=== PATIENT | male | born 1995 | race Caucasian/White ===

== ENCOUNTER 2016-07-30 11:09 | Emergency (ER) | payer OTHER ==
[2016-07-30 11:30] VITALS: RESP 16; TEMP 96.9
[2016-07-30] MEDS ORDERED: Sodium Chloride 0.9% 1,000 ML PRIMARY IV ONE (11:58)
[2016-07-30] MEDS ORDERED: NORMAL SALINE 10 ML SYRINGE FLUSH IVP PRN (11:58)
[2016-07-30 12:04] LABS: BASOPHILS # (AUTO) 0.02 10*3/UL; BASOPHILS % (AUTO) 0.8 % (0-1); EOSINOPHILS # (AUTO) 0.06 10*3/UL; EOSINOPHILS % (AUTO) 2.3 % (0-8); HEMATOCRIT 42.7 % (42.0-52.0); HEMOGLOBIN 14.4 g/dL (14.0-18.0); LYMPHOCYTES # (AUTO) 1.04 10*3/uL; MEAN CORPUSCULAR HEMOGLOBIN 31.4 PG (27-31); MEAN CORPUSCULAR HGB CONC 33.7 g/dL (33-37); MEAN CORPUSCULAR VOLUME 93.2 FL (80-90); MEAN PLATELET VOLUME 12.1 FL (7.4-12.2); MONOCYTES # (AUTO) 0.31 10*3/UL (0.3-0.8); MONOCYTES % (AUTO) 11.9 % (5-15); NEUTROPHILS # (AUTO) 1.18 10*3/UL; NEUTROPHILS % (AUTO) 45.2 % (50-80); RED BLOOD COUNT 4.58 10^6/uL (4.70-6.10)
[2016-07-30 12:08] LABS: PLATELET MORPHOLOGY COMMENT NORMAL MORPHOLOGY (NORM); RBC MORPHOLOGY COMMENT NORMAL MORPHOLOGY (NORM); WBC MORPHOLOGY COMMENT NORMAL MORPHOLOGY (NORM)
[2016-07-30 12:16] LABS: BLOOD UREA NITROGEN 17 mg/dL (7-22); CALCIUM 9.2 mg/dL (8.7-10.7); EST GLOMERULAR FILTRATION > 60 (>60 ml/min/1.73m(2)); LIPASE 56 IU/L (23-300); SERUM ALBUMIN 4.3 g/dL (3.7-5.6)
[2016-07-30 12:56] LABS: URINE SAMPLE TYPE CLEAN CATCH URINE
[2016-07-30 12:57] LABS: CLARITY,URINE CLEAR (CLEAR); COLOR,URINE YELLOW
[2016-07-30 12:58] LABS: BILIRUBIN,URINE NEGATIVE (NEG); GLUCOSE, URINE (UA) NEGATIVE (NEG); NITRATE,URINE NEGATIVE (NEG); OCCULT BLOOD,URINE MODERATE (NEG); PROTEIN,URINE NEGATIVE (NEG); UROBILINOGEN,URINE 0.2 EU/dL (0.2)
[2016-07-30 12:59] LABS: WBC,URINE 0
--- NOTE | 2016-07-30 13:20 | DI ---
HISTORY: Abdominal pain. TECHNIQUE: Serial axial images of the abdomen and pelvis were obtained with coronal and sagittal ref ormats. FINDINGS: There are nonspecific mildly prominent right lower quadrant and central mesenteric lymph n odes identified measuring up to 1.2cm. The heart size is normal and the lung bases are clear. The liver and spleen are normal in size and contour and demonstrate no focal abnormalities. The gall bladder is unremarkable and no intra or extrahepatic biliary ductal dilatation is identified. The pancreas and adrenal glands are normal. The kidneys are in anatomic position. There is no evidence of renal calculi, hydronephrosis or solid renal masses. There is mild sigmoid diverticulosis. Remainder of the visualized bowel, mesentery and omentum are un remarkable with no evidence of obstruction or perforation. IMPRESSION: 1. There are nonspecific mildly prominent right lower quadrant and central mesenteric lymph nodes geovanny ntified measuring up to 1.2cm. These findings are stable from 2013 CT. Clinical correlation recommend ed. 2. Mild sigmoid diverticulosis. Otherwise unremarkable CT examination of the abdomen and pelvis.
[2016-07-30] MEDS ORDERED: Sodium Chloride 0.9% 1,000 ML ONE (15:15)
--- NOTE | 2016-07-30 15:18 | PDOC ---
General Adult HPI - General Chief Complaint: Genitourinary Complaint Stated Complaint: LUQ pain, bladder pain, dysuria Date Seen by Provider: 07/30/16 Time Seen by Provider: 11:10 Source: POSITIVE: Patient Exam Limitations: POSITIVE: Other (Mother) Nurse's Notes Reviewed & Considered: Yes - History of Present Illness Initial Comment: The patient is a 20-year-old male. He states that last night he developed some left flank pain and also some pain in the left upper quadrant with "radiation down towards my bladder". He states that the onset of his symptoms were around 9:51 PM. His symptoms became last and he went to bed. He states then at 2 AM this morning, approximately, he redeveloped his pain. He states at that time he rated the intensity of the pain as "10 on a scale of 10". He states his pain waxes and wanes. Upon presentation to the emergency room he states he has very little discomfort. He also complains of some sensation of "burning with urination". Patient had repair of hypospadius at age 5. Patient and the patient's mother states that he was extensively evaluated at [facility] in 2012 and was diagnosed with postural orthostatic tachycardia syndrome. Patient reports he also had some left ear discomfort a few days ago, but this has resolved. Patient also has been diagnosed with chronic leukopenia. No associated fevers or chills. No nausea, vomiting, diarrhea, melena, hematochezia, hematemesis or gross hematuria. 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) Severity: Moderate Quality: REPORTS: "Pain" Context: DENIES: None, Sitting, Standing, Activity, Emotional stress, Coughing, Recent Trauma, Recent Surgery, Sleep, Rest, Lifting, Turning, Bending, Fall, Near Fall, Other Modifying Factors: worse with: Nothing, Analgesics, Antacids, Breathing, Coughing, Defecating, Vomiting, Eating, Exercise, Lying down, Urinating, Palpation, Movement, Rest, Upright Position, Walking, Remaining Still, Other Similar Symptoms Previously: No Recent Care Received: REPORTS: Denies Any Prior Injuries Related to Current Complaint?: No - Patient Home Medications Home Medications: Home Medications Calcium Carbonate [Calcium] 500 mg PO 3-4XD tab 02/08/13 Cholecalciferol (Vitamin D3) [Vitamin D3] 6,000 unit PO QD #0 02/08/13 Albuterol HFA Inhaler [Proair Hfa Inhaler] 2 puff INH Q4-6H PRN #2 inh 12/05/13 Sodium Chloride 1 gm PO TID tab 12/05/13 - Patient Allergies Allergies/Adverse Reactions: Allergies Allergy/AdvReac Type Severity Reaction Status Date / Time No Known Allergies Allergy Verified 07/30/16 11:10 Past Medical History - heen HEENT History: Denies History Additional HEENT History: WEARS GLASSES Cardiovascular History: Denies History Additional Cardiovasular History: Posterior Orthostatic Tachycardia Syndrome Respiratory History: Asthma Additional Respiratory History: TREATED FOR URI ON 02/02/[address] LICONA, WILL EVALUATE RESP STATUS ON 02/14. Gastrointestinal History: Denies History Additional Gastrointestinal History: HX OF ABD PAIN AND NAUSEA. ENLARGED SPLEEN Genitourinary History: Denies History Endocrine History: Denies History Musculoskeletal History: Denies History Prosthesis or Implant: No Neurological History: Motion Sickness Blood Disorders: Denies History Psychiatric History: Denies History Male Reproductive History: Denies History Cancer History: Denies History In Past Year Been Physically Harmed or Verbally Threatened: No History of MDRO: No Tobacco Use: Never Smoker Alcohol Use: None Substance Use Type: None Previous Surgical History: Yes Type / Date of Surgery: HYPOSPADIAS AGE 6 Anesthesia Reactions: No Malignant Hyperthermia: No Significant Family History: Cancer Additional Family History: MOTHER BREAST CANCER Past Medical History Reviewed: Reviewed - No Changes ROS - Limitations ROS Limitations: No Limitations Constitution: REPORTS: Denies Symptoms Cardiovascular: REPORTS: Denies Cardiac Symptoms Respiratory: REPORTS: Denies Resp Symptoms Neurological: REPORTS: Denies Neuro Symptoms Gastrointestinal: REPORTS: Abdominal Pain Endocrine: REPORTS: Denies Symptoms Musculoskeletal: REPORTS: Denies MS Symptoms Genitourinary: REPORTS: Dysuria, Flank Pain (Left). DENIES: Discharge, Hematuria, Dark Urine, Difficulty Urinating Eyes: REPORTS: Denies Symptoms ENT: REPORTS: Denies Symptoms Skin: REPORTS: Denies Skin Symptoms Lympathic: REPORTS: Denies Lympathic Symptoms Immunologic: POSITIVE: Denies Symptoms Psychiatric: POSITIVE: Denies Psych Symptoms General Adult Exam - General Appearance General Appearance: POSITIVE: Alert, Cooperative, No Acute Distress, No Evidence of Trauma - HEENT HEENT: POSITIVE: Head Inspection Nml, Eyes Inspection Nml, Ears Inspection Nml, Nose Inspection Nml, Oral/Dental Inspect. Nml, Pharynx Inspect. Nml, PERRL, EOMI - Pupils Pupil Size: 3 mm: Bilateral - Neck Neck: POSITIVE: Normal Inspection, Thyroid Normal - Respiratory Respiratory: POSITIVE: No Respiratory Distress, Breath Sounds Normal, Chest Non- Tender - Cardiovascular Cardiovascular: POSITIVE: Regular Rate & Rhythm, No Murmur, No Gallop, PMI Normal Peripheral Pulses: Radial (R): 2+, Radial (L): 2+ - Abdomen Abdomen: Soft: (All Quadrants), Normal Bowel Sounds: (All Quadrants), Denies Tenderness: (RUQ), (RLQ), No Splenomegaly: (All Quadrants), No Hepatomegaly: ( All Quadrants), No Guarding: (All Quadrants), No Rebound: (All Quadrants), No Palpable Pulse: (All Quadrants), No Palpabale Mass: (All Quadrants), No Distention: (All Quadrants), No Rigidity: (All Quadrants), Tenderness Noted: ( LLQ), (LUQ) Additional Abdominal Details: Abdominal examination shows bowel sounds to be active. Patient expresses some mild discomfort on firm direct palpation left upper and left lower quadrants of the abdomen. No masses or organomegaly or rebound. No hernias. Genital examination shows patient to be a circumcised male. No urethral discharge. Testicles are palpably normal. 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 Unchanged from CT scan done in 2013. Lab Results Reviewed: Yes Lab Results:: Laboratory Results 07/30/16 07/30/16 Range/Units 12:01 12:43 WBC 2.61 L (4.8-10.8) 10^3/uL RBC 4.58 L (4.70-6.10) 10^6/uL Hgb 14.4 (14.0-18.0) g/dL Hct 42.7 (42.0-52.0) % MCV 93.2 H (80-90) FL MCH 31.4 H (27-31) PG MCHC 33.7 (33-37) g/dL RDW Std Deviation 44.2 (39-50) fL RDW Coeff of [place] 13.2 (11.5-14.5) % Plt Count 118 L (140-350) 10*3/uL MPV 12.1 (7.4-12.2) FL Immature Gran % (Auto) 0 (0-5) % Neut % (Auto) 45.2 L (50-80) % Lymph % (Auto) 39.8 (10-50) % Saunders % (Auto) 11.9 (5-15) % Eos % (Auto) 2.3 (0-8) % Baso % (Auto) 0.8 (0-1) % Immature Gran # (Auto) 0 10*3/UL Neut # (Auto) 1.18 10*3/UL Lymph # (Auto) 1.04 10*3/uL Saunders # (Auto) 0.31 (0.3-0.8) 10*3/UL Eos # (Auto) 0.06 10*3/UL Baso # (Auto) 0.02 10*3/UL WBC Morphology Comment Normal morphology (NORM) Plt Morphology Comment Normal morphology (NORM) RBC Morph Comment Normal morphology (NORM) Sodium 142 (135-145) meq/L Potassium 4.0 (3.8-5.2) meq/L Chloride 107 (98-112) meq/L Carbon Dioxide 25 (23-33) meq/L Anion Gap 10 (5-20) BUN 17 (7-22) mg/dL Creatinine 1.0 (0.50-1.20) mg/dL Estimated GFR > 60 (>60 ml/min/1.73m(2)) BUN/Creatinine Ratio 17.00 (6-20) Glucose 90 (78-110) mg/dL Calculated Osmolality 295.0 H (267-292) mOsm/kg Calcium 9.2 (8.7-10.7) mg/dL Total Bilirubin 0.4 (0.3-1.2) mg/dL AST 48 (21-57) IU/L ALT 71 (21-72) IU/L Alkaline Phosphatase 61 (50-259) IU/L Total Protein 6.7 (6.1-8.0) g/dL Albumin 4.3 (3.7-5.6) g/dL Globulin 2.3 L (2.50-4.10) g/dL Albumin/Globulin Ratio 1.80 (1.3-2.0) mg/g Amylase 74 (30-110) U/L Lipase 56 (23-300) IU/L Ur Collection Type Clean catch urine Urine Color Yellow Urine Clarity Clear (CLEAR) Urine pH 7.0 (5.0-8.5) Ur Specific [place] 1.015 (1.005-1.030) Urine Protein Negative (NEG) mg/dl Urine Glucose (UA) Negative (NEG) mg/dL Urine Ketones Negative (NEG) Urine Occult Blood Moderate H (NEG) Urine Nitrate Negative (NEG) Urine Bilirubin Negative (NEG) Urine Urobilinogen 0.2 (0.2) EU/dL Ur Leukocyte Esterase Negative (NEG) Urine RBC 10-12 (NONE) /hpf Urine WBC 0 (NONE) Ur Squamous Epith Cells None (NONE) Ur Renal Epithelial Cell None (NONE) Urine Crystals None Urine Bacteria None (NONE) Urine Casts None (NONE) Urine Mucus None (NONE) Urine Trichomonas None (NONE) Urine Yeast None (NONE) Ur Culture Indicated? Culture not set - Patient's Progress Pain Medication Addressed: POSITIVE: Not Applicable School/Work Release Addressed: POSITIVE: Not Applicable Re-Examine Time: 13:25 Re-Examine Comment: Patient remained comfortable throughout stay in the emergency room. Abdominal discomfort seems to have resolved while in the emergency room. Advised patient and his mother about the finding of microscopic hematuria. Recommended that the patient follow-up with Dr. Baca, other primary care provider in a few days for repeat urinalysis. Patient may have passed a stone, which would explain the resolution of his abdominal discomfort and some residual microscopic hematuria. Status: POSITIVE: Improved, Re-Examined Antibiotics Given: No - Consult Counseled: POSITIVE: Patient, Family, RE: Lab Results, RE: Radiology Results, RE : DX, RE: Need for F/U Patient Care Time - Estimated PCT Patient Care Time (In Minutes): 60 Vital Signs - Recent Vital Signs Vital Signs: Vital Signs (Last 8 hours) Temp Pulse Resp BP Pulse Ox 07/30/16 11:09 96.9 F 83 16 136/62 95 - VS Reviewed Vital Signs Reviewed: Yes Discharge Clinical Impression: Hematuria Discharge Disposition: Discharged to Home Condition: Stable Patient Instructions Given at Discharge: Hematuria (ED), Abdominal Pain (ED), Ureteral Stones (ED) Additional Instructions: Urinalysis shows that you do have, microscopically, some increased number of red blood cells in your urine. CT scan of your abdomen and pelvis was read by the radiologist as showing no intra-abdominal or pelvic pathology, such as kidney stones. The CT scan is reported as being unchanged from the CT scan you add in 2012. I believe most likely your left sided abdominal pain and urinary symptoms were being caused by a ureteral stone, which you have likely passed. This would account your symptoms associated with the red blood cells in your urine and your normal CT scan. Please increase fluids. I would like you to follow-up with your primary care provider in 7-10 days and have a repeat urinalysis done to check for the resolution of red blood cells in your urine. Your white blood cell count was also noted to be a little low, and I would like your primary care provider to repeat your blood count. Strain your urine for the next 3 or 4 days to check for passage of a stone. Return here anytime if condition worsens in any way, or as necessary. Follow Up With: RUPERT BAAC [Primary Care Provider] - (I am glad you're feeling better. Instructions as above. Follow-up with your primary care provider in 7 or 8 days. Return here anytime if condition worsens in any way.)
== END 2016-07-30 13:53 | disposition home or self-care (01) ==
LOC: ER 11:09
DX: R31.9 Hematuria, unspecified (principal); R30.0 Dysuria; R10.12 Left upper quadrant pain
CPT/HCPCS: 74177; 80053; 81001; 81003; 82150; 83690; 85025; 99283; J7030